=== PATIENT | female | born 1960 | race African-American/Black ===

== ENCOUNTER 2018-09-27 05:48 | Inpatient (IN) | payer BC ==
[2018-09-27] MEDS ORDERED: ACETAMINOPHEN 500 MG TAB PO (06:00)
[2018-09-27] MEDS: oxyCODONE (CR) 10 MG TAB [oxyCONTIN] PO (06:19)
[2018-09-27] MEDS: ONDANSETRON 4 MG INJ IV ×2 (06:19→12:37)
[2018-09-27] MEDS: DEXAMETHASONE 4 MG/ML 1 ML INJ IV (06:19)
[2018-09-27] MEDS: LANSOPRAZOLE 30 MG CAP PO (06:20)
[2018-09-27] MEDS: ACETAMINOPHEN 1000MG/100ML IV 100 ML IVPB (06:30)
[2018-09-27] MEDS: VANCOMYCIN 1 GM 250 ML IVPB (06:31)
[2018-09-27] MEDS: LACTATED RINGER'S 1,000 ML IV* (06:31)
[2018-09-27] MEDS ORDERED: GLYCOPYRROLATE 0.4 MG INJ (07:23)
[2018-09-27] MEDS ORDERED: ROCURONIUM 50 MG INJ (07:23)
[2018-09-27] MEDS ORDERED: PROPOFOL 20 ML (07:23)
[2018-09-27] MEDS ORDERED: CEFAZOLIN 1 GM INJ (07:23)
[2018-09-27] MEDS ORDERED: FENTAnyl 50 MCG/ML VIAL (07:24)
[2018-09-27] MEDS ORDERED: DEXAMETHASONE 4 MG/ML 5 ML INJ (07:24)
[2018-09-27] MEDS ORDERED: ONDANSETRON 4 MG INJ (07:24)
[2018-09-27] MEDS ORDERED: MIDAZOLAM 1 MG/ML 2 ML INJ (07:24)
[2018-09-27] MEDS ORDERED: morphine SULFATE/PF (10 MG/10 ML) INJ (07:27)
[2018-09-27] MEDS: TRANEXAMIC ACID 1GM/100ML(PMX) 100 ML PRE-OP X1 IVPB (08:10)
[2018-09-27] MEDS ORDERED: EPHEDrine SULFATE 50 MG/5 ML SYG IV (08:30)
[2018-09-27] MEDS ORDERED: MIDAZOLAM 1 MG/ML 2 ML INJ IV (08:30)
[2018-09-27] MEDS ORDERED: LABETALOL HCL 20MG INJ IV (08:30)
[2018-09-27] MEDS ORDERED: DIPHENHYDRAMINE 50 MG INJ IV (08:30)
[2018-09-27] MEDS ORDERED: NALOXONE (0.4 MG/ML) INJ IV (08:30)
[2018-09-27] MEDS ORDERED: TRIMETHOBENZAMIDE 100 MG/ML VIAL IM ×2 (08:30)
[2018-09-27] MEDS ORDERED: HYDROmorphONE 0.5 MG/0.5 ML SYG IV ×2 (08:30)
[2018-09-27] MEDS ORDERED: hydrALAzine 20 MG INJ IV (08:30)
[2018-09-27] MEDS ORDERED: NALBUPHINE HCL (10 MG/1 ML) INJ IV (08:30)
[2018-09-27] MEDS ORDERED: HYDROmorphONE 1 MG/5 ML IV SYRINGE IV ×3 (08:30)
[2018-09-27] MEDS ORDERED: ONDANSETRON 4 MG INJ IV (08:30)
[2018-09-27] MEDS ORDERED: FENTAnyl 50 MCG/ML VIAL IV ×3 (08:30)
[2018-09-27] MEDS ORDERED: ALBUTEROL 0.083% (NEB) 2.5 MG/3 ML AMP HHN (08:30)
[2018-09-27] MEDS ORDERED: IPRATROPIUM (NEB) 0.5 MG/2.5 ML AMP HHN (08:30)
[2018-09-27] MEDS ORDERED: MEPERIDINE 25 MG INJ IV (08:30)
[2018-09-27] MEDS: BACITRACIN 50000 UNITS INJ (10:09)
[2018-09-27] MEDS: POLYMYXIN B 500000 UNIT INJ (10:09)
[2018-09-27] MEDS: TRANEXAMIC ACID 1GM/100ML(PMX) 100 ML INTRA-OP X1 IVPB (10:10)
[2018-09-27] MEDS ORDERED: HIP PAIN COCKTAIL VANCO INJ (13:00)
[2018-09-27] MEDS ORDERED: KETOROLAC 30 MG INJ IM (14:00)
[2018-09-27] MEDS: ASPIRIN (EC) 81 MG TAB PO ×2 (14:00→21:37)
[2018-09-27] MEDS ORDERED: traMADol 50 MG TAB PO (14:00)
[2018-09-27] MEDS: LACTATED RINGER'S 1,000 ML IV ×2 (14:00→16:00)
[2018-09-27] MEDS: VANCOMYCIN 1 GM (PMX) 250 ML IVPB ×2 (16:00→21:38)
[2018-09-27] MEDS: CELECOXIB 100 MG CAP PO (21:38)
[2018-09-28] MEDS: CELECOXIB 100 MG CAP PO ×2 (08:28→12:58)
[2018-09-28] MEDS: ASPIRIN (EC) 81 MG TAB PO (08:28)
[2018-09-28] MEDS: HYDROCODONE/APAP (5/325) TAB PO (08:29)
[2018-09-28] MEDS: DIPHENHYDRAMINE 50 MG INJ IV (08:33)
[2018-09-28] MEDS: LACTATED RINGER'S 1,000 ML IV (10:00)
== END 2018-09-28 15:02 | disposition home health service (06) | DRG 470 ==
LOC: REC 05:48 → MS1 13:54
PROC: 0SR904A Replacement of Right Hip Joint with Ceramic on Polyethylene Synthetic Substitute, Uncemented, Open Approach (ICD-10-PCS; principal; 2018-09-27 07:30)
PROC: 8E0YXBF Computer Assisted Procedure of Lower Extremity, With Fluoroscopy (ICD-10-PCS; 2018-09-27 07:30)
DX: M16.11 Unilateral primary osteoarthritis, right hip (principal); I10 Essential (primary) hypertension; E66.9 Obesity, unspecified; Z68.33 Body mass index [BMI] 33.0-33.9, adult
CPT/HCPCS: 72170; 73500; 73530; 88304; 88311; 97116; 97161; 97530